=== PATIENT | male | born 1990 | race Caucasian/White ===

== ENCOUNTER 2017-04-16 21:12 | Emergency (ER) | payer OTHER ==
[~2017-04-16] VITALS: Ht 172.7 cm; Wt 105.0 kg
[2017-04-16 21:15] VITALS: BP 130/65
== END 2017-04-16 21:35 | disposition home or self-care (01) ==
LOC: ER 21:12
DX: F90.9 Attention-deficit hyperactivity disorder, unspecified type; R03.0 Elevated blood-pressure reading, without diagnosis of hypertension; F31.9 Bipolar disorder, unspecified
CPT/HCPCS: 99283